=== PATIENT | female | born 1960 ===

== ENCOUNTER 2020-07-15 09:59 | Outpatient (CLI) | payer OTHER ==
[~2020-07-15 09:59] MED LIST: ATACAND4 MG; PRILOSEC10 MG
== END 2020-07-15 10:08 | disposition home or self-care (01) ==
LOC: SONOGRAMA 09:59 → MAMO-SONO 10:15
PROVIDERS: ATTEND Internal Medicine Gastroenterology
DX: R16.0 Hepatomegaly, not elsewhere classified (principal)